=== PATIENT | female | born 1960 | race Caucasian/White ===

== ENCOUNTER → 2016-05-27 | Outpatient (CLI) | payer OTHER, MEDICAID ==
[~2016-05-27] MED LIST: BACTRIM DS 8001 TA1 PO; LISINOPRIL HCTZ1 TAB PO; NAPROSYN500 MG PO; NORCO 325 MG-51 TAB PO; PEN-V500 MG PO; PRINIVIL20 MG PO; PROVERA10 MG PO; Peridex 473 ML473 ML PO
== END | disposition home or self-care (01) ==
LOC: MAMMO 05-26 09:00
DX: Z12.31 Encounter for screening mammogram for malignant neoplasm of breast (principal)

== ENCOUNTER 2016-07-18 17:52 | Emergency (ER) | payer OTHER, MEDICAID ==
[~2016-07-18] VITALS: Ht 165.1 cm; Wt 68.0 kg
[2016-07-18 18:01] VITALS: BP 165/81
[2016-07-18] MEDS ORDERED: TOBREX OPHTH S2.5 ML OPH (18:11)
== END 2016-07-18 18:05 | disposition home or self-care (01) ==
LOC: ED 17:52
DX: H10.31 Unspecified acute conjunctivitis, right eye (principal); R03.0 Elevated blood-pressure reading, without diagnosis of hypertension; F17.200 Nicotine dependence, unspecified, uncomplicated; Z98.890 Other specified postprocedural states; Z79.899 Other long term (current) drug therapy

== ENCOUNTER 2016-09-28 20:43 | Emergency (ER) | payer OTHER, MEDICAID ==
[~2016-09-28] VITALS: Ht 162.5 cm; Wt 72.6 kg
[~2016-09-28 20:43] MED LIST changes: +TOBREX OPHTH S2.5 ML OPH
[2016-09-28 20:51] VITALS: BP 194/90
[2016-09-28] MEDS ORDERED: Peridex 473 ML473 ML PO (20:55)
[2016-09-28] MEDS ORDERED: NAPROSYN500 MG PO (20:55)
[2016-09-28] MEDS ORDERED: PENICILLIN VK500 MG PO (20:55)
== END 2016-09-28 20:58 | disposition home or self-care (01) ==
LOC: ED 20:43
DX: K02.9 Dental caries, unspecified (principal); R03.0 Elevated blood-pressure reading, without diagnosis of hypertension; F17.200 Nicotine dependence, unspecified, uncomplicated

== ENCOUNTER 2018-03-07 14:13 | Emergency (ER) | payer MEDICARE, MEDICAID ==
[~2018-03-07] VITALS: Ht 165.1 cm; Wt 68.0 kg
[~2018-03-07 14:13] MED LIST changes: +PENICILLIN VK500 MG PO
[2018-03-07 14:14] VITALS: BP 175/74
[2018-03-07] MEDS ORDERED: CEPHALEXIN500 M1 PO (14:56)
[2018-03-07] MEDS ORDERED: SEPTDS PO (14:56)
== END 2018-03-07 14:57 | disposition home or self-care (01) ==
LOC: ED 14:13
DX: L02.416 Cutaneous abscess of left lower limb (principal); Z79.899 Other long term (current) drug therapy

== ENCOUNTER → 2018-12-24 | Outpatient (CLI) | payer MEDICARE ==
[~2018-12-24] MED LIST changes: +CEPHALEXIN500 M1 PO; +SEPTDS PO
[2018-12-24 10:25] LABS: ALBUMIN 3.8 gm/dl (3.1-4.5); BUN 13 mg/dl (7-24); CHLORIDE 104 mmol/L (98-107); CREATININE 0.94 mg/dL (0.55-1.02); POTASSIUM 4.3 mmol/L (3.5-5.1); SGOT/AST 19 IU/L (3-35); SGPT/ALT 21 U/L (12-78); SODIUM 136 mmol/L (136-145)
[2018-12-24 10:29] LABS: ALKALINE PHOSPHATASE 90 U/L (45-117); CHOLESTEROL 201 mg/dL (<200); HDL CHOLESTEROL 41 mg/dl (40-60); LDL CHOLESTEROL 114 mg/dL (9-159); TOTAL PROTEIN 7.5 gm/dL (6.4-8.2); TRIGLYCERIDES 232 mg/dl (<150); VLDL CHOLESTEROL 46 mg/dL (6-40)
== END | disposition home or self-care (01) ==
LOC: LAB 09:37
PROVIDERS: Registered Nurse Flight
DX: E78.5 Hyperlipidemia, unspecified (principal); E55.9 Vitamin D deficiency, unspecified

== ENCOUNTER 2019-03-13 11:55 | Emergency (ER) | payer OTHER ==
[~2019-03-13] VITALS: Ht 165.1 cm; Wt 68.0 kg
[2019-03-13 12:05] VITALS: BP 126/63
[2019-03-13 13:03] LABS: BILIRUBIN NEGATIVE (NEGATIVE); BLOOD 3+ (NEGATIVE); CLARITY CLOUDY (CLEAR); COLOR YELLOW (YELLOW); GLUCOSE NEGATIVE (NEGATIVE); KETONE NEGATIVE (NEGATIVE); LEUKO ESTERASE 2+ (NEGATIVE); NITRITE POSITIVE (NEGATIVE); UROBILINOGEN 0.2 E.U./dl (0.2-1.0)
[2019-03-13 13:20] LABS: BACTERIA 4+; RBC TNTC rbc/hpf (0-2); WBC TNTC wbc/hpf (0-5)
[2019-03-13] MEDS ORDERED: MACROBID100 M1 PO (13:46)
[2019-03-13] MEDS ORDERED: PYRIDIUM200 M1 PO (13:48)
== END 2019-03-13 13:52 | disposition home or self-care (01) ==
LOC: ED 11:55
PROVIDERS: Emergency Medicine
DX: N39.0 Urinary tract infection, site not specified (principal); I10 Essential (primary) hypertension; Z79.899 Other long term (current) drug therapy

== ENCOUNTER → 2019-04-05 | Outpatient (CLI) | payer OTHER ==
[~2019-04-05] MED LIST changes: +MACROBID100 M1 PO; +PYRIDIUM200 M1 PO
[2019-04-05 16:53] LABS: ALBUMIN 3.9 gm/dl (3.1-4.5); CREATININE 1.14 mg/dL (0.55-1.02); POTASSIUM 3.9 mmol/L (3.5-5.1)
== END | disposition home or self-care (01) ==
LOC: LAB 16:07
PROVIDERS: Registered Nurse Flight
DX: E78.5 Hyperlipidemia, unspecified (principal); E55.9 Vitamin D deficiency, unspecified

== ENCOUNTER → 2019-06-09 | Outpatient (CLI) | payer OTHER, MEDICAID ==
[2019-06-09 13:41] LABS: ALBUMIN 4.1 gm/dl (3.1-4.5); ALKALINE PHOSPHATASE 111 U/L (45-117); BUN 9 mg/dl (7-24); CHLORIDE 106 mmol/L (98-107); CHOLESTEROL 202 mg/dL (<200); CREATININE 0.92 mg/dL (0.55-1.02); HDL CHOLESTEROL 41 mg/dl (40-60); LDL CHOLESTEROL 130 mg/dL (9-159); POTASSIUM 3.9 mmol/L (3.5-5.1); SGOT/AST 14 IU/L (3-35); SGPT/ALT 22 U/L (12-78); SODIUM 142 mmol/L (136-145); TOTAL PROTEIN 8.1 gm/dL (6.4-8.2); TRIGLYCERIDES 154 mg/dl (<150); VLDL CHOLESTEROL 31 mg/dL (6-40)
== END | disposition home or self-care (01) ==
LOC: LAB 12:41
PROVIDERS: Registered Nurse Flight
DX: I10 Essential (primary) hypertension (principal); R30.0 Dysuria; E78.5 Hyperlipidemia, unspecified

== ENCOUNTER 2019-11-19 23:18 | Emergency (ER) | payer OTHER, MEDICAID ==
[~2019-11-19] VITALS: Ht 167.6 cm; Wt 68.0 kg
[2019-11-19 23:23] VITALS: BP 186/86
== END 2019-11-19 23:54 | disposition left against medical advice (07) ==
LOC: ED 23:18
DX: T40.1X1A Poisoning by heroin, accidental (unintentional), initial encounter (principal); R40.20 Unspecified coma; R06.81 Apnea, not elsewhere classified; I10 Essential (primary) hypertension; F17.200 Nicotine dependence, unspecified, uncomplicated; Z79.2 Long term (current) use of antibiotics; Z79.899 Other long term (current) drug therapy; Z53.29 Procedure and treatment not carried out because of patient's decision for other reasons; Y92.89 Other specified places as the place of occurrence of the external cause

== ENCOUNTER 2020-09-24 15:03 | Emergency (ER) | payer OTHER, MEDICAID ==
[~2020-09-24] VITALS: Ht 165.1 cm; Wt 68.5 kg
[2020-09-24 15:17] VITALS: BP 180/90
[2020-09-24] MEDS ORDERED: ANUSOL HC30 GM PO (16:43)
== END 2020-09-24 16:58 | disposition home or self-care (01) ==
LOC: ED 15:03
DX: K64.9 Unspecified hemorrhoids (principal); Z79.899 Other long term (current) drug therapy; Z79.2 Long term (current) use of antibiotics; Z98.890 Other specified postprocedural states

== ENCOUNTER 2020-11-17 06:05 | Emergency (ER) | payer OTHER, MEDICAID ==
[~2020-11-17] VITALS: Ht 165.1 cm; Wt 70.3 kg
[~2020-11-17 06:05] MED LIST changes: +ANUSOL HC30 GM PO
[2020-11-17 06:25] VITALS: BP 167/67
[2020-11-17] MEDS ORDERED: ANUSOL-HC25 MG R (06:37)
== END 2020-11-17 06:39 | disposition home or self-care (01) ==
LOC: ED 06:05
DX: K64.8 Other hemorrhoids (principal); F17.200 Nicotine dependence, unspecified, uncomplicated; Z79.899 Other long term (current) drug therapy

== ENCOUNTER 2020-12-31 02:33 | Emergency (ER) | payer OTHER, MEDICAID ==
[~2020-12-31 02:33] MED LIST changes: +ANUSOL-HC25 MG R
[2020-12-31 02:45] VITALS: BP 194/86
[2020-12-31] MEDS ORDERED: RID LICE KILLIN59 ML T (02:57)
== END 2020-12-31 03:16 | disposition home or self-care (01) ==
LOC: ED 02:33
DX: B85.0 Pediculosis due to Pediculus humanus capitis (principal); Z79.899 Other long term (current) drug therapy

== ENCOUNTER 2021-01-15 01:22 | Emergency (ER) | payer OTHER, MEDICAID ==
[~2021-01-15 01:22] MED LIST changes: +RID LICE KILLIN59 ML T
== END 2021-01-15 02:17 | disposition left against medical advice (07) ==
LOC: ED 01:22
DX: B85.2 Pediculosis, unspecified (principal); Z53.21 Procedure and treatment not carried out due to patient leaving prior to being seen by health care provider

== ENCOUNTER → 2021-01-21 | Outpatient (CLI) | payer OTHER, MEDICAID ==
[2021-01-21 11:08] LABS: ALBUMIN 3.7 gm/dl (3.1-4.5); ALKALINE PHOSPHATASE 111 U/L (45-117); BUN 17 mg/dl (7-24); CHLORIDE 107 mmol/L (98-107); CHOLESTEROL 262 mg/dL (<200); CREATININE 0.84 mg/dL (0.55-1.02); LDL CHOLESTEROL 195 mg/dL (9-159); POTASSIUM 4.2 mmol/L (3.5-5.1); SGOT/AST 27 IU/L (3-35); SGPT/ALT 38 U/L (12-78); SODIUM 140 mmol/L (136-145); TOTAL PROTEIN 8.1 gm/dL (6.4-8.2); TRIGLYCERIDES 129 mg/dl (<150)
== END | disposition home or self-care (01) ==
LOC: LAB 10:09
PROVIDERS: ATTEND Family Medicine
DX: Z13.1 Encounter for screening for diabetes mellitus (principal); I10 Essential (primary) hypertension; E55.9 Vitamin D deficiency, unspecified; Z86.73 Personal history of transient ischemic attack (TIA), and cerebral infarction without residual deficits; Z79.899 Other long term (current) drug therapy

== ENCOUNTER → 2021-02-12 | Outpatient (CLI) | payer OTHER, MEDICAID | END | disposition home or self-care (01) | LOC: MAMMO 01:55 | PROVIDERS: ATTEND Family Medicine | DX: Z12.31 Encounter for screening mammogram for malignant neoplasm of breast (principal) ==

== ENCOUNTER → 2021-04-08 | Outpatient (CLI) | payer OTHER, MEDICAID | END | disposition home or self-care (01) | LOC: LAB 14:16 | PROVIDERS: ATTEND Family Medicine | DX: R79.89 Other specified abnormal findings of blood chemistry (principal); E55.9 Vitamin D deficiency, unspecified ==

== ENCOUNTER 2021-06-15 16:43 | Emergency (ER) | payer MEDICAID ==
[~2021-06-15] VITALS: Ht 167.6 cm; Wt 70.3 kg
[2021-06-15 17:47] LABS: ACT PARTIAL THROMBO TIME 24.1 SECONDS (20.0-32.1)
[2021-06-15 17:53] LABS: CREATININE 3.16 mg/dL (0.55-1.02); TOTAL PROTEIN 7.4 gm/dL (6.4-8.2)
[2021-06-15 17:55] LABS: BILIRUBIN Negative (Negative); BLOOD 1+ (Negative); CLARITY Turbid (Clear); COLOR Yellow (Yellow); GLUCOSE Negative (Negative); KETONE Negative (Negative); LEUKO ESTERASE 3+ (Negative); NITRITE Negative (Negative)
[2021-06-15 17:57] LABS: BASO # 0.1 10*3/uL (0.0-0.1); BASO % 0.4 % (0.0-1.0); EOS % 0.2 % (1.0-4.0); LYMPH # 1.8 10*3/uL (1.3-4.4); LYMPH % 8.7 % (27.0-41.0); MEAN CELL VOLUME 91.7 fl (81.0-99.0); MEAN CORPUSCULAR HGB 30.3 pg (27.0-31.0); MEAN PLATELET VOLUME 9.8 fl (9.6-12.3); MONO % 4.9 % (3.0-9.0); NEUT # 17.7 10*3/uL (2.3-7.9); NEUT % 85.1 % (47.0-73.0); PLATELET COUNT AUTOMATED 348 10*3/uL (130-400); RED CELL DISTRI WIDTH 13.3 % (0-14.5); WHITE BLOOD COUNT 20.8 10*3/uL (4.8-10.8)
[2021-06-15 18:05] LABS: BACTERIA 4+; EPITHELIAL CELLS 21-30; TRIP PHOS CRYSTALS TRACE; WBC TNTC wbc/hpf (0-5)
[2021-06-15 18:23] VITALS: BP 118/37
[2021-06-15] MEDS ORDERED: CEPHALEXIN500 M1 PO (21:00)
[2021-06-15] MEDS ORDERED: DOXYCYCLINE HY100 M3 PO (21:00)
== END 2021-06-15 21:00 | disposition left against medical advice (07) ==
LOC: ED 16:43
PROVIDERS: Nurse Practitioner Family
DX: N39.0 Urinary tract infection, site not specified (principal); N17.9 Acute kidney failure, unspecified; E87.6 Hypokalemia; E87.1 Hypo-osmolality and hyponatremia; Z79.899 Other long term (current) drug therapy

== ENCOUNTER 2021-11-28 10:18 | Emergency (ER) | payer MEDICARE, MEDICAID ==
[~2021-11-28 10:18] MED LIST changes: +DOXYCYCLINE HY100 M3 PO
[2021-11-28 12:36] LABS: BASO # 0.1 10*3/uL (0.0-0.1); BASO % 0.4 % (0.0-1.0); EOS # 0.1 10*3/uL (0.0-0.4); EOS % 0.5 % (1.0-4.0); HEMATOCRIT 33.6 % (37.0-47.0); LYMPH # 1.7 10*3/uL (1.3-4.4); MEAN CELL VOLUME 92.1 fl (81.0-99.0); MEAN CORPUSCULAR HGB 29.9 pg (27.0-31.0); MEAN CORPUSCULAR HGB CONC 32.4 g/dl (33.0-37.0); MEAN PLATELET VOLUME 9.7 fl (9.6-12.3); MONO # 1.1 10*3/uL (0.1-1.0); MONO % 7.9 % (3.0-9.0); NEUT # 10.9 10*3/uL (2.3-7.9); NEUT % 78.8 % (47.0-73.0); PLATELET COUNT AUTOMATED 380 10*3/uL (130-400); RED BLOOD COUNT 3.65 10*6/uL (4.10-5.10); RED CELL DISTRI WIDTH 13.2 % (0-14.5); WHITE BLOOD COUNT 13.9 10*3/uL (4.8-10.8)
[2021-11-28 12:58] LABS: CREATININE 3.22 mg/dL (0.55-1.02); POTASSIUM 3.4 mmol/L (3.5-5.1)
[2021-11-28 12:59] LABS: TOTAL PROTEIN 6.8 gm/dL (6.4-8.2)
[2021-11-28 16:04] VITALS: BP 127/43
== END 2021-11-28 20:25 | disposition left against medical advice (07) ==
LOC: ED 10:18
PROVIDERS: Physician Assistant
DX: N81.4 Uterovaginal prolapse, unspecified (principal); Z79.899 Other long term (current) drug therapy

== ENCOUNTER 2022-02-21 15:12 | Emergency (ER) | payer MEDICARE, MEDICAID ==
[~2022-02-21] VITALS: Wt 68.0 kg
[2022-02-21 15:23] VITALS: BP 122/69
[2022-02-25] MEDS ORDERED: ATORVASTATIN CA20 M1 PO (11:19)
[2022-02-25] MEDS ORDERED: ASPIRIN ADULT L81 M2 PO (11:19)
[2022-02-25] MEDS ORDERED: LOPRESSOR25 MG PO (11:19)
[2022-02-25] MEDS ORDERED: AMLODIPINE BESYL5 MG PO (11:19)
[2022-02-25] MEDS ORDERED: LEVOFLOXACIN750 M2 PO (11:19)
== END 2022-02-21 15:52 | disposition home or self-care (01) ==
LOC: ED 15:12
DX: T69.8XXA Other specified effects of reduced temperature, initial encounter (principal); Z59.00 Homelessness unspecified; Z98.890 Other specified postprocedural states; X31.XXXA Exposure to excessive natural cold, initial encounter; Y93.89 Activity, other specified; Y92.89 Other specified places as the place of occurrence of the external cause; Y99.8 Other external cause status

== ENCOUNTER 2023-07-17 15:43 | Emergency (ER) | payer OTHER, MEDICARE, MEDICAID ==
[~2023-07-17] VITALS: Wt 68.0 kg
[~2023-07-17 15:43] MED LIST changes: +AMLODIPINE BESYL5 MG PO; +ASPIRIN ADULT L81 M2 PO; +ATORVASTATIN CA20 M1 PO; +LEVOFLOXACIN750 M2 PO; +LOPRESSOR25 MG PO
[2023-07-17] MEDS ORDERED: Acetaminophen/Oxycodone 5 MG/325 MG TABLET PO ONE (15:50)
[2023-07-17] MEDS ORDERED: amLODIPine besylate 10 MG TAB PO ONE (16:50)
[2023-07-17] MEDS ORDERED: Labetalol Hydrochloride 20 MG/4 ML SYR IV ONE (16:50)
[2023-07-17] MEDS ORDERED: TRAMADOL HCL50 MG PO (16:53)
[2023-07-17] MEDS ORDERED: NORVASC10 MG PO (16:53)
[2023-07-17 17:48] VITALS: BP 119/55
== END 2023-07-17 18:19 | disposition home or self-care (01) ==
LOC: ED 15:43
DX: I16.0 Hypertensive urgency (principal); M25.522 Pain in left elbow; M25.512 Pain in left shoulder; F17.210 Nicotine dependence, cigarettes, uncomplicated; Z79.899 Other long term (current) drug therapy; Z79.82 Long term (current) use of aspirin; Z59.00 Homelessness unspecified; Z79.2 Long term (current) use of antibiotics; Z98.890 Other specified postprocedural states; V89.2XXA Person injured in unspecified motor-vehicle accident, traffic, initial encounter; Y93.89 Activity, other specified; Y92.410 Unspecified street and highway as the place of occurrence of the external cause; Y99.8 Other external cause status

== ENCOUNTER → 2024-10-17 | Outpatient (CLI) | payer OTHER, MEDICAID ==
[~2024-10-17] MED LIST changes: +NORVASC10 MG PO; +TRAMADOL HCL50 MG PO
== END | disposition home or self-care (01) ==
LOC: CARD 10-06 08:00 → CT 01:11 → CARD 10:00
PROVIDERS: ATTEND Internal Medicine Cardiovascular Disease
DX: Z12.2 Encounter for screening for malignant neoplasm of respiratory organs (principal); J44.9 Chronic obstructive pulmonary disease, unspecified; R06.02 Shortness of breath; R07.9 Chest pain, unspecified; F17.210 Nicotine dependence, cigarettes, uncomplicated